=== PATIENT | female | born 1990 | race American Indian/Alaskan Native ===

== ENCOUNTER 2020-05-31 19:25 | Observation (INO) | payer OTHER ==
[2020-05-31 21:50] LABS: Basophils % (Auto) 0.5 % (0.0-1.8); Eosinophils # (Auto) 0.1 K/mm3 (0.0-0.4); Eosinophils % (Auto) 1.5 % (0.0-4.3); Lymphocytes # (Auto) 2.1 K/mm3 (1.2-5.4); Lymphocytes % (Auto) 23.4 % (13.4-35.0); Mean Corpuscular HGB Conc 32 % (30-34); Monocytes # (Auto) 0.5 K/mm3 (0.0-0.8); Monocytes % (Auto) 6.1 % (0.0-7.3); Platelet Count 308 K/mm3 (140-440); Red Blood Count 2.58 M/mm3 (3.65-5.03)
[2020-05-31 21:58] LABS: Hematocrit 15.8 % (30.3-42.9); Mean Corpuscular Volume 61 fl (79-97); Red Cell Distribution Width 20.8 % (13.2-15.2)
[2020-05-31 22:10] LABS: Alanine Aminotransferase 9 units/L (7-56); Albumin 4.2 g/dL (3.9-5); Blood Urea Nitrogen 8 mg/dL (7-17); Calcium 9.6 mg/dL (8.4-10.2); Hemolysis Index 0
[2020-05-31 22:23] LABS: BUN/Creatinine Ratio 13
[2020-05-31] MEDS ORDERED: SODIUM CHLORIDE 0.9% 500 ML 500 ML IV ONE (23:23)
--- NOTE | 2020-05-31 23:27 | Emergency Department Report ---
HPI - General Chief Complaint: Medical Clearance Time Seen by Provider: 05/31/20 23:07 - HPI HPI: Room 21 The patient is a 30-year-old female present with a chief complaint of symptomatic anemia. The patient states she was preop to have a uterine fibroid embolization procedure performed tomorrow. Patient states she had blood drawn 2 weeks ago and was called today and informed that her blood counts were low and that she should come to the emergency department for blood transfusion. Patient states she has uterine fibroids and has a history of abnormal heavy vaginal bleeding. Patient states she has had daily vaginal bleeding for the past few mo nths except for the last 2 weeks. Patient states there is been no vaginal bleeding for the past 2 weeks. Patient states she has felt fatigued and had dyspnea on exertion since April. Patient denies melena or bright red blood per rectum ED Past Medical Hx - Past Medical History Previous Medical History?: No - Surgical History Past Surgical History?: Yes Additional Surgical History: x2 - Family History Family history: no significant - Social History Smoking Status: Never Smoker Substance Use Type: None (Denies illicit drug use), Alcohol (Occasionally) - Medications Home Medications: Home Medications Medication Instructions Recorded Confirmed Last Taken Type Ferrous Sulfate [Feosol 325 MG tab] 325 mg PO QDAY #90 tablet 12/26/14 Unknown Rx Fluconazole (Nf) [Diflucan] 150 mg PO ONCE #1 tablet 12/26/14 Unknown Rx Ibuprofen [Motrin] 600 mg PO Q8H PRN #90 tablet 12/26/14 Unknown Rx Sulfamethoxazole/Trimethoprim 1 each PO BID #10 tablet 12/26/14 Unknown Rx [Bactrim Ds] traMADoL [Ultram] 50 mg PO Q6HR PRN #14 tablet 12/26/14 Unknown Rx ED Review of Systems ROS: Stated complaint: MEDICAL CLEARANCE Other details as noted in HPI Constitutional: weakness Eyes: denies: eye pain ENT: denies: throat pain Respiratory: SOB with exertion Cardiovascular: dyspnea on exertion Endocrine: no symptoms reported Gastrointestinal: denies: abdominal pain Genitourinary: abnormal menses Musculoskeletal: denies: back pain Neurological: denies: headache Physical Exam - Physical Exam Vital Signs: Vital Signs 05/31/20 21:11 Temperature 98.4 F Pulse Rate 91 H Respiratory 20 Rate Blood Pressure 109/64 O2 Sat by Pulse 100 Oximetry Physical Exam: GENERAL: The patient is well-developed well-nourished female lying on stretcher not appearing to be in acute distress. [] HEENT: Normocephalic. Atraumatic. Extraocular motions are intact. Patient has moist mucous membranes. NECK: Supple. Trachea midline CHEST/LUNGS: Clear to auscultation. There is no respiratory distress noted. HEART/CARDIOVASCULAR: Regular. There is no tachycardia. There is no gallop rub or murmur. ABDOMEN: Abdomen is soft, nontender. Patient has normal bowel sounds. There is no abdominal distention. SKIN: There is no rash. There is no edema. There is no diaphoresis. NEURO: The patient is awake, alert, and oriented. The patient is cooperative. The patient has normal speech MUSCULOSKELETAL: There is no evidence of acute injury. ED Course Vital Signs 05/31/20 21:11 Temperature 98.4 F Pulse Rate 91 H Respiratory 20 Rate Blood Pressure 109/64 O2 Sat by Pulse 100 Oximetry ED Medical Decision Making - Lab Data Result diagrams: 05/31/20 21:33 05/31/20 21:33 Laboratory Tests 05/31/20 05/31/20 05/31/20 21:33 21:33 21:33 WBC 8.8 RBC 2.58 L Hgb 5.0 L* Hct 15.8 L* MCV 61 L MCH 19 L MCHC 32 RDW 20.8 H Plt Count 308 Lymph % (Auto) 23.4 [place] % (Auto) 6.1 Eos % (Auto) 1.5 Baso % (Auto) 0.5 Lymph # (Auto) 2.1 [place] # (Auto) 0.5 Eos # (Auto) 0.1 Baso # (Auto) 0.0 Seg Neutrophils % 68.5 Seg Neutrophils # 6.0 Sodium 138 Potassium 3.8 Chloride 103.1 Carbon Dioxide 24 Anion Gap 15 BUN 8 Creatinine 0.6 Estimated GFR > 60 BUN/Creatinine Ratio 13 Glucose 111 H Calcium 9.6 Total Bilirubin 0.20 AST 19 ALT 9 Alkaline Phosphatase 51 Total Protein 7.7 Albumin 4.2 Albumin/Globulin Ratio 1.2 HCG, Qual Negative Blood Type Antibody Screen Crossmatch 05/31/20 21:33 WBC RBC Hgb Hct MCV MCH MCHC RDW Plt Count Lymph % (Auto) [place] % (Auto) Eos % (Auto) Baso % (Auto) Lymph # (Auto) [place] # (Auto) Eos # (Auto) Baso # (Auto) Seg Neutrophils % Seg Neutrophils # Sodium Potassium Chloride Carbon Dioxide Anion Gap BUN Creatinine Estimated GFR BUN/Creatinine Ratio Glucose Calcium Total Bilirubin AST ALT Alkaline Phosphatase Total Protein Albumin Albumin/Globulin Ratio HCG, Qual Blood Type A POSITIVE Antibody Screen Negative Crossmatch See Detail - Differential Diagnosis Symptomatic anemia Critical care attestation.: If time is entered above; I have spent that time in minutes in the direct care of this critically ill patient, excluding procedure time. ED Disposition Clinical Impression: Symptomatic anemia Disposition: OP ADMIT IP TO THIS HOSP Is pt being admited?: Yes Does the pt Need Aspirin: No Condition: Fair Referrals: PRIMARY CARE,MD [Primary Care Provider] - 3-5 Days Time of Disposition: 23:26 (Hospitalist paged (Dr Anglin))
--- NOTE | 2020-05-31 23:56 | History and Physical Report ---
History of Present Illness Date of examination: 05/31/20 Date of admission: 05/31/2020 Chief complaint: Abnormal labs History of present illness: 30-year-old -[place] female presenting to the emergency room today after being called by the primary care physician for low hemoglobin. Patient has known history of uterine fibroid and she was being prepared for uterine fibroid embolization procedure and therefore had some preop labs revealing low hemoglobin. Patient indicates that she has been having menorrhagia secondary to a uterine fibroid and therefore being prepared for the above procedure. She indicates that she feels generally tired and dizzy at times. She denies any fall, no chest pain, she has had occasional shortness of breath, no nausea vomi ting, no diarrhea, no bright red blood per rectum, no hematuria or dysuria. Work-up today reveals hemoglobin of 5.0 and hematocrit of 15.8. She is therefore being prepared for blood transfusion for her symptomatic anemia. Past History Past Medical History: other (Uterine Fibroid, menorrhagia) Past Surgical History: Social history: alcohol abuse (Occasional alcohol intake) Family history: no significant family history Medications and Allergies Allergies Allergy/AdvReac Type Severity Reaction Status Date / Time No Known Allergies Allergy Verified 12/25/14 23:39 Home Medications Medication Instructions Recorded Confirmed Last Taken Type Ferrous Sulfate [Feosol 325 MG tab] 325 mg PO QDAY #90 tablet 12/26/14 Unknown Rx Fluconazole (Nf) [Diflucan] 150 mg PO ONCE #1 tablet 12/26/14 Unknown Rx Ibuprofen [Motrin] 600 mg PO Q8H PRN #90 tablet 12/26/14 Unknown Rx Sulfamethoxazole/Trimethoprim 1 each PO BID #10 tablet 12/26/14 Unknown Rx [Bactrim Ds] traMADoL [Ultram] 50 mg PO Q6HR PRN #14 tablet 12/26/14 Unknown Rx Review of Systems Constitutional: no fever, no chills Ears, nose, mouth and throat: no nasal congestion, no sore throat Cardiovascular: lightheadedness, no chest pain, no palpitations Respiratory: no cough, no shortness of breath Gastrointestinal: no abdominal pain, no nausea, no vomiting, no melena Genitourinary Female: menorrhagia, no dysmenorrhea, no pelvic pain, no flank p ain, no dysuria Musculoskeletal: no neck pain, no low back pain Integumentary: no rash, no pruritis Neurological: no headaches, no confusion Psychiatric: no anxiety, no depression Exam - Constitutional Vitals: Temp Pulse Resp BP Pulse Ox 98.8 F 109 H 21 119/51 100 05/31/20 23:20 05/31/20 23:20 05/31/20 23:20 05/31/20 23:20 05/31/20 23:20 General appearance: Present: no acute distress, well-nourished, other (Moderate Pallor) - EENT Eyes: Present: PERRL, EOM intact. Absent: scleral icterus ENT: hearing intact, clear oral mucosa, dentition normal - Neck Neck: Present: supple, normal ROM - Respiratory Respiratory effort: normal Respiratory: bilateral: CTA - Cardiovascular Rhythm: regular Heart Sounds: Present: S1 & S2. Absent: gallop, systolic murmur, diastolic murmur, rub - Extremities Extremities: no ischemia, pulses intact, pulses symmetrical, No edema, Full ROM Peripheral Pulses: within normal limits - Abdominal General gastrointestinal: Present: soft, non-tender, non-distended, normal bowel sounds. Absent: mass - Integumentary Integumentary: Present: clear, warm, dry. Absent: rash - Musculoskeletal Musculoskeletal: strength equal bilaterally - Psychiatric Psychiatric: appropriate mood/affect, intact judgment & insight, memory intact, cooperative - Neurologic Neurologic: CNII-XII intact, no focal deficits, moves all extremities Results - Labs CBC & Chem 7: 05/31/20 21:33 05/31/20 21:33 Labs: Abnormal lab results 05/31/20 05/31/20 05/31/20 Range/Units 21:33 21:33 21:33 RBC 2.58 L (3.65-5.03) M/mm3 Hgb 5.0 L* (10.1-14.3) gm/dl Hct 15.8 L* (30.3-42.9) % MCV 61 L (79-97) fl MCH 19 L (28-32) pg RDW 20.8 H (13.2-15.2) % Glucose 111 H (65-100) mg/dL Crossmatch See Detail Assessment and Plan - Patient Problems (1) Symptomatic anemia Current Visit: Yes Status: Acute Plan to address problem: Secondary to heavy menstrual flow. Patient has known history of uterine f ibroid and she is being prepared for fibroid embolization at an outside facility. Procedure was supposed to be carried out today. We will transfuse with packed red blood cell and monitor CBC. (2) DVT prophylaxis Current Visit: Yes Status: Acute Plan to address problem: We will place patient on sequential compression device. (3) Full code status Current Visit: Yes Status: Acute
[2020-06-01] MEDS ORDERED: ONDANSETRON 4 MG/2 ML INJ IV PRN (00:04)
[2020-06-01] MEDS ORDERED: MAGNESIUM HYDROXIDE (MOM) ORAL LIQD UDC PO PRN (00:04)
[2020-06-01] MEDS ORDERED: ACETAMINOPHEN 325 MG TAB PO PRN (00:04)
[2020-06-01] MEDS ORDERED: diphenhydrAMINE 50 MG/ML VIAL IV PRN (00:05)
--- NOTE | 2020-06-01 00:06 | History and Physical Report ---
History of Present Illness Date of examination: 05/31/20 Date of admission: 05/31/2020 Chief complaint: Abnormal labs Past History Past Medical History: other (Uterine Fibroid, menorrhagia) Past Surgical History: Social history: alcohol abuse (Occasional alcohol intake) Family history: no significant family history Medications and Allergies Allergies Allergy/AdvReac Type Severity Reaction Status Date / Time No Known Allergies Allergy Verified 12/25/14 23:39 Home Medications Medication Instructions Recorded Confirmed Last Taken Type Ferrous Sulfate [Feosol 325 MG tab] 325 mg PO QDAY #90 tablet 12/26/14 Unknown Rx Fluconazole (Nf) [Diflucan] 150 mg PO ONCE #1 tablet 12/26/14 Unknown Rx Ibuprofen [Motrin] 600 mg PO Q8H PRN #90 tablet 12/26/14 Unknown Rx Sulfamethoxazole/Trimethoprim 1 each PO BID #10 tablet 12/26/14 Unknown Rx [Bactrim Ds] traMADoL [Ultram] 50 mg PO Q6HR PRN #14 tablet 12/26/14 Unknown Rx Exam - Constitutional Vitals: Temp Pulse Resp BP Pulse Ox 98.8 F 109 H 21 119/51 100 05/31/20 23:20 05/31/20 23:20 05/31/20 23:20 05/31/20 23:20 05/31/20 23:20 Results - Labs CBC & Chem 7: 05/31/20 21:33 05/31/20 21:33 Labs: Abnormal lab results 05/31/20 05/31/20 05/31/20 Range/Units 21:33 21:33 21:33 RBC 2.58 L (3.65-5.03) M/mm3 Hgb 5.0 L* (10.1-14.3) gm/dl Hct 15.8 L* (30.3-42.9) % MCV 61 L (79-97) fl MCH 19 L (28-32) pg RDW 20.8 H (13.2-15.2) % Glucose 111 H (65-100) mg/dL Crossmatch See Detail Assessment and Plan - Patient Problems (1) Symptomatic anemia Current Visit: Yes Status: Acute (2) DVT prophylaxis Current Visit: Yes Status: Acute (3) Full code status Current Visit: Yes Status: Acute
[2020-06-01] MEDS ORDERED: SODIUM CHLORIDE 0.9% 500 ML 500 ML ONE (02:16)
[2020-06-01] MEDS ORDERED: diphenhydrAMINE 50 MG/ML VIAL ONE (02:35)
[2020-06-01] MEDS ORDERED: FERROUS SULFATE 325 MG TAB PO SCH (12:00)
--- NOTE | 2020-06-01 14:03 | Discharge Summary ---
Providers - Providers Date of Admission: 05/31/20 23:49 Date of discharge: 06/01/20 Attending physician: CHAPIS TEJADA Primary care physician: MATT LOVE MD Hospitalization Condition: Fair Hospital course: 30-year-old -[place] female with known history of uterine fibroid and she was being prepared for uterine fibroid embolization procedure and therefore had some preop labs presented to the emergency room after being called by the primary care physician for low hemoglobin. Work-up in the ER revealed hemoglobin of 5.0 and hematocrit 15.8. Patient was transfused 2 unit of packed RBC. No transfusion reaction noted. Patient's vitals remained stable. Patient was then discharged home with outpatient follow-up with her PCP following blood transfusion. Discharge diagnosis: --Severe symptomatic anemia -Status post packed RBC transfusion -Recommended to take iron pills daily and repeat H&H in 2 days --Fibroid uterus, prepare for fibroid embolization at an outside facility Disposition: TO HOME OR SELFCARE Time spent for discharge: 34 minutes Core Measure Documentation - Palliative Care Palliative Care/ Comfort Measures: Not Applicable - Core Measures Any of the following diagnoses?: none Exam - Constitutional Vitals: Temp Pulse Resp BP Pulse Ox 98.0 F 81 20 105/56 100 06/01/20 05:54 06/01/20 12:45 06/01/20 12:45 06/01/20 12:45 06/01/20 12:45 Plan Activity: advance as tolerated Weight Bearing Status: Weight Bear as Tolerated Diet: regular Follow up with: PRIMARY MD IVAN [Primary Care Provider] - 3-5 Days
[2020-06-01 15:19] LABS: Hematocrit 24.1 % (30.3-42.9); Hemoglobin 7.7 gm/dl (10.1-14.3)
[2020-06-01 17:08] VITALS: BP 132/84
== END 2020-06-01 18:15 | disposition home or self-care (01) ==
LOC: ED 19:25 → 3A 23:49
PROVIDERS: ADMIT Internal Medicine Geriatric Medicine; ATTEND Internal Medicine
DX: D64.9 Anemia, unspecified (principal); D25.9 Leiomyoma of uterus, unspecified; Z98.891 History of uterine scar from previous surgery
CPT/HCPCS: 36415; 36430; 80053; 84703; 85014; 85018; 85025; 86850; 86900; 86901; 86920; 96374; 99284; G0378; J1200; J7040; P9016